=== PATIENT | female | born 1995 | race Caucasian/White ===

== ENCOUNTER 2018-05-23 10:44 | Day surgery (SDC) | payer MEDICAID ==
[2018-05-20 11:46] LABS: BASOPHILS % (AUTO) 0.5 % (0-1); EOSINOPHILS # (AUTO) 0.2 X10'3 (0-0.9); LYMPHOCYTES # (AUTO) 1.8 X10'3 (1.1-4.8); LYMPHOCYTES % (AUTO) 23.7 % (21-51); MEAN CORPUSCULAR HEMOGLOBIN 29.5 PG (27.0-31.0); MEAN CORPUSCULAR HGB CONC 33.9 % (33.0-36.5); MEAN PLATELET VOLUME 9.7 FL (7.4-10.4); MONOCYTES # (AUTO) 0.5 X10'3 (0-0.9); MONOCYTES % (AUTO) 6.6 % (2-12); NEUTROPHILS # (AUTO) 4.9 X10'3 (1.8-7.7); NEUTROPHILS % (AUTO) 66.2 % (42-75); PRE OP HEMOGLOBIN 12.9 g/dL (12.0-16.0); PRE OP PLATELET COUNT 218 X10'3 (140-440); RED BLOOD COUNT 4.37 X10'6 (4.20-5.60); RED CELL DISTRIBUTION WIDTH 13.1 % (11.5-14.5)
[2018-05-20 12:00] LABS: ALBUMIN/GLOBULIN RATIO 1.3 (1.1-1.5); ALKALINE PHOSPHATASE 91 IU/L (46-116); BLOOD UREA NITROGEN 12 MG/DL (7-18); BUN/CREATININE RATIO 15.8 (6.6-38.0); CALCIUM 9.3 MG/DL (8.5-10.1); CHLORIDE 104 MMOL/L (99-107); CREATININE 0.76 MG/DL (0.40-0.90); PRE OP ALT 36 U/L (30-65); PRE OP ANION GAP 9 (8-16); PRE OP AST 18 U/L (10-37); PRE OP BILIRUB, TOTAL 0.5 MG/DL (0.0-1.0); PRE OP GLUCOSE 97 MG/DL (70-104); PRE OP SODIUM 140 MMOL/L (135-145); TOTAL PROTEIN 7.1 G/DL (6.4-8.2); eGFR > 90 ML/MIN
[2018-05-20 12:01] LABS: HCG SERUM QL NEGATIVE
[2018-05-23] VITALS (8 sets, daily range): BP systolic 110–117; BP diastolic 56–75
[~2018-05-23] VITALS: Ht 154.9 cm; Wt 68.0 kg
[~2018-05-23 10:44] MED LIST: Cefazolin 2GM/50ML dext iso,osmotic IVPB IV ONE; IBUP-1984 PO; MULT-1085 PO; famotidine 20mg tablet PO ONE; ringers solution, lacted 1,000 ML IV SCH
[2018-05-23] MEDS ORDERED: LIDOcaine 1% (10mg/ml) 2ml vial ONE (11:46)
[2018-05-23] MEDS ORDERED: BUPIVAcaine/PF 2.5mg/ml (0.25%) 10ml vial ONE (12:03)
[2018-05-23] MEDS ORDERED: ceFAZolin 1000mg inj ONE (12:03)
[2018-05-23] MEDS ORDERED: diazepam 5mg tablet PO ONE (12:15)
[2018-05-23] MEDS ORDERED: LIDOcaine/PRILOcaine 5gm cream TP ONE (12:25)
[2018-05-23] MEDS ORDERED: midazolam 2 mg/2 ml injection ONE (13:34)
[2018-05-23] MEDS ORDERED: fentaNYL /PF 50mcg/ml 5ml ampule ONE (13:35)
[2018-05-23] MEDS ORDERED: propofol inj 20 ML IV ONE (13:35)
[2018-05-23] MEDS ORDERED: rocuronium 10mg/ml inj IV ONE (13:35)
[2018-05-23 13:39] LABS: CLARITY,URINE SLIGHTLY CLOUDY (Clear); COLOR,URINE YELLOW (Yellow); GLUCOSE, URINE NEGATIVE (Neg); KETONES,URINE NEGATIVE (Neg); LEUKOCYTE ESTERASE ,URINE NEGATIVE (Neg); NITRITES, URINE NEGATIVE (Neg); OCCULT BLOOD,URINE NEGATIVE (Neg); PROTEIN,URINE NEGATIVE (Neg); UROBILINOGEN,URINE 0.2 E.U/dL (0.2-1.0)
[2018-05-23] MEDS ORDERED: sevoflurane 250ml liquid IH ONE (13:48)
[2018-05-23] MEDS ORDERED: ringers solution, lacted 1,000 ML IV SCH (14:08)
[2018-05-23] MEDS ORDERED: meperidine/PF 25mg/ml syringe IV PRN ×3 (14:10)
[2018-05-23] MEDS ORDERED: ondansetron/PF 4mg/2ml inj IV PRN (14:10)
[2018-05-23] MEDS ORDERED: morphine 4 MG/ML inj SYRINge IV PRN ×2 (14:10)
[2018-05-23] MEDS ORDERED: proCHLORperazine 10 MG/2 ml inj IV PRN (14:10)
[2018-05-23 14:12] LABS: UA COLLECTION TYPE CLN CATCH MIDSTREAM
[2018-05-23 14:14] LABS: BACTERIA,URINE NONE SEEN /HPF (Neg); RBC,URINE NONE SEEN /HPF (0-2); SQUAMOUS EPITHELIAL CELL,UR MANY /LPF (FEW); WBC,URINE 0-4 /HPF (0-4)
[2018-05-23] MEDS ORDERED: ondansetron/PF 4mg/2ml inj ONE (14:35)
[2018-05-23] MEDS ORDERED: dexamethasone sod phosphate 4mg/ml inj. ONE (14:35)
[2018-05-23] MEDS ORDERED: neostigmine methylsulfate 1 MG/ML 10ml vial ONE (14:36)
[2018-05-23] MEDS ORDERED: glycopyrrolate 0.2mg/ml inj ONE (14:36)
[2018-05-23] MEDS ORDERED: ketorolac trometh. 30mg/ml inj. IV ONE (15:15)
== END 2018-05-23 16:14 | disposition home or self-care (01) ==
LOC: PAS 10:44
PROVIDERS: ATTEND Surgery
DX: K81.1 Chronic cholecystitis (principal); K82.8 Other specified diseases of gallbladder; D36.0 Benign neoplasm of lymph nodes; F17.210 Nicotine dependence, cigarettes, uncomplicated; F12.90 Cannabis use, unspecified, uncomplicated; F41.8 Other specified anxiety disorders; Z91.018 Allergy to other foods; Z79.1 Long term (current) use of non-steroidal anti-inflammatories (NSAID); Z88.8 Allergy status to other drugs, medicaments and biological substances; Z98.890 Other specified postprocedural states; Z79.899 Other long term (current) drug therapy
CPT/HCPCS: 36415; 47562; 80053; 81001; 84703; 85025; A6258; J0690; J0780; J1100; J1885; J2175; J2250; J2405; J2704; J2710; J3010; J3490; J7120; A7000

== ENCOUNTER 2018-06-03 18:02 | Emergency (ER) | payer MEDICAID ==
[~2018-06-03] VITALS: Ht 154.9 cm; Wt 69.0 kg
[~2018-06-03 18:02] MED LIST changes: -Cefazolin 2GM/50ML dext iso,osmotic IVPB IV ONE; -famotidine 20mg tablet PO ONE; -ringers solution, lacted 1,000 ML IV SCH
[2018-06-03 18:47] LABS: CLARITY,URINE CLOUDY (Clear); COLOR,URINE YELLOW (Yellow); GLUCOSE, URINE NEGATIVE (Neg); KETONES,URINE NEGATIVE (Neg); LEUKOCYTE ESTERASE ,URINE MODERATE (Neg); NITRITES, URINE NEGATIVE (Neg); OCCULT BLOOD,URINE NEGATIVE (Neg); PROTEIN,URINE NEGATIVE (Neg)
[2018-06-03 18:48] LABS: URINE HCG NEGATIVE (NEG)
[2018-06-03 18:49] LABS: UA COLLECTION TYPE CLN CATCH MIDSTREAM
[2018-06-03 18:59] LABS: AMORPHOUS PHOSPHATES 4+; BACTERIA,URINE 1+ /HPF (Neg); MUCUS STRANDS MANY /LPF (Neg); RBC,URINE NONE SEEN /HPF (0-2); SQUAMOUS EPITHELIAL CELL,UR MANY /LPF (FEW)
[2018-06-03 19:16] LABS: BASOPHILS % (AUTO) 0.1 % (0-1); EOSINOPHILS # (AUTO) 0.2 X10'3 (0-0.9); EOSINOPHILS % (AUTO) 1.5 % (0-6); HEMATOCRIT 38.9 % (35.0-45.0); HEMOGLOBIN 13.2 g/dl (12.0-16.0); LYMPHOCYTES % (AUTO) 15.1 % (21-51); MEAN CORPUSCULAR HEMOGLOBIN 29.7 PG (27.0-31.0); MEAN CORPUSCULAR VOLUME 87.4 FL (78-98); MEAN PLATELET VOLUME 9.8 FL (7.4-10.4); MONOCYTES # (AUTO) 0.6 X10'3 (0-0.9); MONOCYTES % (AUTO) 4.9 % (2-12); NEUTROPHILS # (AUTO) 10.2 X10'3 (1.8-7.7); NEUTROPHILS % (AUTO) 78.4 % (42-75); PLATELET COUNT 243 X10'3 (140-440); RED BLOOD COUNT 4.45 X10'6 (4.20-5.60); RED CELL DISTRIBUTION WIDTH 13.1 % (11.5-14.5); WHITE BLOOD COUNT 12.9 X10'3 (4.5-11.0)
[2018-06-03 19:31] LABS: ALANINE AMINOTRANSFERASE 128 U/L (12-78); ALBUMIN/GLOBULIN RATIO 1.1 (1.1-1.5); ALKALINE PHOSPHATASE 130 IU/L (46-116); ANION GAP 12 (8-16); ASPARTATE AMINO TRANSFERASE 24 U/L (10-37); BILIRUBIN,TOTAL 0.3 MG/DL (0.1-1.0); BLOOD UREA NITROGEN 10 MG/DL (7-18); BUN/CREATININE RATIO 13.9 (6.6-38.0); CALCIUM 9.5 MG/DL (8.5-10.1); CHLORIDE 103 MMOL/L (99-107); CREATININE 0.72 MG/DL (0.40-0.90); GLUCOSE 105 MG/DL (70-104); LIPASE 134 U/L (73-393); POTASSIUM 3.6 MMOL/L (3.5-5.1); SODIUM 141 MMOL/L (135-145); TOTAL CARBON DIOXIDE 26.5 MMOL/L (24-32); TOTAL PROTEIN 7.5 G/DL (6.4-8.2); eGFR > 90 ML/MIN
[2018-06-03] MEDS ORDERED: iohexol 300mg/ml 100ml inj. ONE (19:54)
[2018-06-03 20:07] LABS: MAGNESIUM 2.1 MG/DL (1.5-2.4)
[2018-06-03] MEDS ORDERED: morphine 4 MG/ML inj SYRINge IV ONE (20:35)
[2018-06-03] MEDS ORDERED: ondansetron/PF 4mg/2ml inj IV ONE (20:35)
[2018-06-03] MEDS ORDERED: ondansetron 4mg rapidly disintigrating tab PO ONE (21:55)
[2018-06-03] MEDS ORDERED: HYDROcodone/acetaminophen 10/325mg tab PO ONE (21:55)
[2018-06-03 22:03] VITALS: BP 112/60
== END 2018-06-03 22:04 | disposition home or self-care (01) ==
LOC: ER 18:03
DX: N83.201 Unspecified ovarian cyst, right side (principal); F12.90 Cannabis use, unspecified, uncomplicated; Z88.8 Allergy status to other drugs, medicaments and biological substances; Z91.018 Allergy to other foods
CPT/HCPCS: 36415; 74177; 80053; 81001; 81025; 83605; 83690; 83735; 84145; 85025; 85610; 87040; 87070; 87077; 87186; 96374; 96375; 99285; J2270; J2405; J7030; Q9967

== ENCOUNTER 2018-08-29 13:56 | Emergency (ER) | payer MEDICAID ==
[~2018-08-29] VITALS: Ht 154.9 cm; Wt 63.6 kg
[2018-08-29 14:42] LABS: URINE HCG NEGATIVE (NEG)
[2018-08-29 14:50] LABS: COLOR,URINE YELLOW (Yellow); GLUCOSE, URINE NEGATIVE (Neg); KETONES,URINE NEGATIVE (Neg); LEUKOCYTE ESTERASE ,URINE NEGATIVE (Neg); NITRITES, URINE NEGATIVE (Neg); OCCULT BLOOD,URINE NEGATIVE (Neg); PROTEIN,URINE NEGATIVE (Neg); UROBILINOGEN,URINE 0.2 E.U/dL (0.2-1.0)
[2018-08-29 14:53] LABS: CLARITY,URINE CLEAR (Clear); UA COLLECTION TYPE CLN CATCH MIDSTREAM
[2018-08-29 15:45] LABS: BASOPHILS % (AUTO) 0.5 % (0-1); EOSINOPHILS # (AUTO) 0.2 X10'3 (0-0.9); EOSINOPHILS % (AUTO) 1.9 % (0-6); HEMATOCRIT 39.3 % (35.0-45.0); HEMOGLOBIN 13.1 g/dl (12.0-16.0); LYMPHOCYTES # (AUTO) 1.6 X10'3 (1.1-4.8); LYMPHOCYTES % (AUTO) 17.5 % (21-51); MEAN CORPUSCULAR HGB CONC 33.3 % (33.0-36.5); MEAN CORPUSCULAR VOLUME 87.2 FL (78-98); MEAN PLATELET VOLUME 9.3 FL (7.4-10.4); MONOCYTES # (AUTO) 0.6 X10'3 (0-0.9); MONOCYTES % (AUTO) 6.9 % (2-12); NEUTROPHILS # (AUTO) 6.8 X10'3 (1.8-7.7); NEUTROPHILS % (AUTO) 73.2 % (42-75); PLATELET COUNT 240 X10'3 (140-440); RED BLOOD COUNT 4.51 X10'6 (4.20-5.60); RED CELL DISTRIBUTION WIDTH 13.7 % (11.5-14.5); WHITE BLOOD COUNT 9.3 X10'3 (4.5-11.0)
[2018-08-29 15:58] LABS: ALANINE AMINOTRANSFERASE 21 U/L (12-78); ALBUMIN 4.1 G/DL (3.4-5.0); ALBUMIN/GLOBULIN RATIO 1.5 (1.1-1.5); ALKALINE PHOSPHATASE 99 IU/L (46-116); ANION GAP 7 (8-16); ASPARTATE AMINO TRANSFERASE 13 U/L (10-37); BILIRUBIN,TOTAL 0.4 MG/DL (0.1-1.0); BLOOD UREA NITROGEN 11 MG/DL (7-18); BUN/CREATININE RATIO 14.9 (6.6-38.0); CALCIUM 9.1 MG/DL (8.5-10.1); CHLORIDE 104 MMOL/L (99-107); CREATININE 0.74 MG/DL (0.40-0.90); GLUCOSE 75 MG/DL (70-104); LIPASE 96 U/L (73-393); POTASSIUM 3.6 MMOL/L (3.5-5.1); SODIUM 140 MMOL/L (135-145); TOTAL CARBON DIOXIDE 29.5 MMOL/L (24-32); TOTAL PROTEIN 6.9 G/DL (6.4-8.2); eGFR > 90 ML/MIN
[2018-08-29] MEDS ORDERED: famotidine 20mg tablet PO ONE (16:00)
[2018-08-29] MEDS ORDERED: LIDOcaine Viscous 15ml cup PO ONE (16:00)
[2018-08-29] MEDS ORDERED: pantoprazole 40mg Tablet.DR PO ONE (16:00)
[2018-08-29] MEDS ORDERED: mag hydrox/Alum hydrox/simeth 30ml oral suspension PO ONE (16:00)
[2018-08-29 16:04] LABS: INR 1.1 INR; PROTHROMBIN TIME 10.9 SECONDS (9.0-12.0)
[2018-08-29] MEDS ORDERED: PANT-47 PO (17:22)
[2018-08-29] MEDS ORDERED: BISA-155 PO (17:22)
[2018-08-29] MEDS ORDERED: ONDA8TAB9 PO (17:22)
[2018-08-29 17:54] VITALS: BP 126/86
== END 2018-08-29 17:57 | disposition home or self-care (01) ==
LOC: ER 13:56
DX: R10.13 Epigastric pain (principal); R11.2 Nausea with vomiting, unspecified; F12.90 Cannabis use, unspecified, uncomplicated; Z79.899 Other long term (current) drug therapy; Z91.018 Allergy to other foods; Z88.8 Allergy status to other drugs, medicaments and biological substances; Z90.49 Acquired absence of other specified parts of digestive tract
CPT/HCPCS: 36415; 80053; 81003; 81025; 83690; 85025; 85610; 99284

== ENCOUNTER 2019-11-13 22:24 | Emergency (ER) | payer MEDICAID ==
[~2019-11-13] VITALS: Ht 154.9 cm; Wt 68.4 kg
[~2019-11-13 22:24] MED LIST changes: +BISA-155 PO; +ONDA8TAB9 PO; +PANT-47 PO
[2019-11-13 23:29] LABS: CLARITY,URINE CLEAR (Clear); COLOR,URINE YELLOW (Yellow); GLUCOSE, URINE NEGATIVE (Neg); KETONES,URINE NEGATIVE (Neg); LEUKOCYTE ESTERASE ,URINE SMALL (Neg); NITRITES, URINE NEGATIVE (Neg); OCCULT BLOOD,URINE NEGATIVE (Neg); PROTEIN,URINE NEGATIVE (Neg); UROBILINOGEN,URINE 0.2 E.U/dL (0.2-1.0)
[2019-11-13 23:35] LABS: URINE HCG NEGATIVE (NEG)
[2019-11-13 23:37] LABS: BASOPHILS # (AUTO) 0.1 X10'3 (0-0.2); BASOPHILS % (AUTO) 0.9 % (0-1); EOSINOPHILS # (AUTO) 0.4 X10'3 (0-0.9); EOSINOPHILS % (AUTO) 3.5 % (0-6); HEMATOCRIT 38.9 % (35.0-45.0); HEMOGLOBIN 13.4 g/dl (12.0-16.0); LYMPHOCYTES # (AUTO) 2.6 X10'3 (1.1-4.8); LYMPHOCYTES % (AUTO) 22.4 % (21-51); MEAN CORPUSCULAR HEMOGLOBIN 29.8 PG (27.0-31.0); MEAN CORPUSCULAR HGB CONC 34.4 g/dL (33.0-36.5); MEAN CORPUSCULAR VOLUME 86.5 FL (78-98); MEAN PLATELET VOLUME 9.6 FL (7.4-10.4); MONOCYTES # (AUTO) 0.7 X10'3 (0-0.9); MONOCYTES % (AUTO) 6.2 % (2-12); NEUTROPHILS # (AUTO) 7.7 X10'3 (1.8-7.7); PLATELET COUNT 222 X10'3 (140-440); RED CELL DISTRIBUTION WIDTH 12.9 % (11.5-14.5); WHITE BLOOD COUNT 11.5 X10'3 (4.5-11.0)
[2019-11-13 23:48] LABS: UA COLLECTION TYPE CLN CATCH MIDSTREAM
[2019-11-13 23:49] LABS: BACTERIA,URINE FEW /HPF (Neg); RBC,URINE NONE SEEN /HPF (0-2); SQUAMOUS EPITHELIAL CELL,UR FEW /LPF (FEW); WBC,URINE 0-4 /HPF (0-4)
[2019-11-13 23:50] LABS: ALANINE AMINOTRANSFERASE 41 U/L (12-78); ALBUMIN 4.3 G/DL (3.4-5.0); ALBUMIN/GLOBULIN RATIO 1.5 (1.1-1.5); ALKALINE PHOSPHATASE 85 IU/L (46-116); ANION GAP 12 (8-16); ASPARTATE AMINO TRANSFERASE 22 U/L (10-37); BILIRUBIN,TOTAL 0.3 MG/DL (0.1-1.0); BLOOD UREA NITROGEN 12 MG/DL (7-18); BUN/CREATININE RATIO 17.6 (6.6-38.0); CALCIUM 9.4 MG/DL (8.5-10.1); CHLORIDE 105 MMOL/L (99-107); CREATININE 0.68 MG/DL (0.40-0.90); GLUCOSE 98 MG/DL (70-104); LIPASE 134 U/L (73-393); POTASSIUM 4.2 MMOL/L (3.5-5.1); SODIUM 143 MMOL/L (135-145); TOTAL PROTEIN 7.2 G/DL (6.4-8.2); eGFR > 90 ML/MIN
[2019-11-13] MEDS ORDERED: ringers solution, lacted 1,000 ML IV ONE (23:50)
[2019-11-13] MEDS ORDERED: ondansetron/PF 4mg/2ml inj IV ONE (23:50)
[2019-11-13] MEDS ORDERED: morphine 4 MG/ML inj SYRINge IV ONE (23:50)
[2019-11-14 00:19] LABS: PARTIAL THROMBOPLASTIN TIME 27 SECONDS (22-32)
[2019-11-14 00:53] VITALS: BP 113/44
== END 2019-11-14 00:55 | disposition home or self-care (01) ==
LOC: ER 22:25
DX: R10.31 Right lower quadrant pain (principal); R10.33 Periumbilical pain; R11.2 Nausea with vomiting, unspecified; R19.7 Diarrhea, unspecified; F12.90 Cannabis use, unspecified, uncomplicated; F41.9 Anxiety disorder, unspecified; Z90.49 Acquired absence of other specified parts of digestive tract; Z91.018 Allergy to other foods; Z88.8 Allergy status to other drugs, medicaments and biological substances; Z79.899 Other long term (current) drug therapy
CPT/HCPCS: 36415; 74176; 80053; 81001; 81025; 83690; 84145; 85025; 85610; 85730; 87088; 96361; 96374; 96375; 99284; J2270; J2405; J7120

== ENCOUNTER 2021-04-14 11:22 | Emergency (ER) | payer MEDICAID ==
[~2021-04-14] VITALS: Ht 154.9 cm; Wt 71.5 kg
[2021-04-14] MEDS ORDERED: VALA100031 PO (13:27)
[2021-04-14 13:34] VITALS: BP 110/77
== END 2021-04-14 13:35 | disposition home or self-care (01) ==
LOC: ER 11:23
DX: R07.81 Pleurodynia (principal); R20.8 Other disturbances of skin sensation; F41.9 Anxiety disorder, unspecified; F12.90 Cannabis use, unspecified, uncomplicated; Z90.49 Acquired absence of other specified parts of digestive tract; Z91.018 Allergy to other foods; Z79.899 Other long term (current) drug therapy; Z79.2 Long term (current) use of antibiotics
CPT/HCPCS: 71046; 99283

== ENCOUNTER 2022-04-14 10:08 | Emergency (ER) | payer MEDICAID ==
[~2022-04-14] VITALS: Ht 154.9 cm; Wt 68.2 kg
[~2022-04-14 10:08] MED LIST changes: +VALA100031 PO
[2022-04-14 10:53] LABS: BASOPHILS # (AUTO) 0.1 X10'3 (0-0.2); BASOPHILS % (AUTO) 0.7 % (0-1); EOSINOPHILS # (AUTO) 0.2 X10'3 (0-0.9); EOSINOPHILS % (AUTO) 2.5 % (0-6); HEMATOCRIT 38.4 % (35.0-45.0); HEMOGLOBIN 13.1 g/dl (12.0-16.0); LYMPHOCYTES # (AUTO) 1.8 X10'3 (1.1-4.8); LYMPHOCYTES % (AUTO) 20.7 % (21-51); MEAN CORPUSCULAR HEMOGLOBIN 29.2 PG (27.0-31.0); MEAN CORPUSCULAR HGB CONC 34.1 g/dL (33.0-36.5); MEAN CORPUSCULAR VOLUME 85.6 FL (78-98); MEAN PLATELET VOLUME 8.4 FL (7.4-10.4); MONOCYTES # (AUTO) 0.5 X10'3 (0-0.9); MONOCYTES % (AUTO) 6.1 % (2-12); PLATELET COUNT 278 X10'3 (140-440); RED BLOOD COUNT 4.48 X10'6 (4.20-5.60); RED CELL DISTRIBUTION WIDTH 13.7 % (11.5-14.5); WHITE BLOOD COUNT 8.6 X10'3 (4.5-11.0)
[2022-04-14 10:57] LABS: URINE HCG NEGATIVE (NEG)
[2022-04-14 11:08] LABS: CLARITY,URINE CLOUDY (Clear); COLOR,URINE YELLOW (Yellow); GLUCOSE, URINE NEGATIVE (Neg); KETONES,URINE NEGATIVE (Neg); LEUKOCYTE ESTERASE ,URINE NEGATIVE (Neg); NITRITES, URINE NEGATIVE (Neg); OCCULT BLOOD,URINE LARGE (Neg); PH,URINE 5.5 (4.8-8.0); PROTEIN,URINE NEGATIVE (Neg); UROBILINOGEN,URINE 0.2 E.U/dL (0.2-1.0)
[2022-04-14 11:08] LABS: ALANINE AMINOTRANSFERASE 62 U/L (12-78); ALBUMIN/GLOBULIN RATIO 1.1 (1.1-1.5); ALKALINE PHOSPHATASE 93 IU/L (46-116); ANION GAP 10 (8-16); ASPARTATE AMINO TRANSFERASE 26 U/L (10-37); BILIRUBIN,TOTAL 0.3 MG/DL (0.1-1.0); BLOOD UREA NITROGEN 7 MG/DL (7-18); BUN/CREATININE RATIO 10.8 (6.6-38.0); CALCIUM 8.4 MG/DL (8.5-10.1); CHLORIDE 108 MMOL/L (99-107); CREATININE 0.65 MG/DL (0.40-0.90); GLUCOSE 95 MG/DL (70-104); SODIUM 142 MMOL/L (135-145); TOTAL CARBON DIOXIDE 24.4 MMOL/L (24-32); TOTAL PROTEIN 7.5 G/DL (6.4-8.2); eGFR > 90 ML/MIN
[2022-04-14 11:13] LABS: UA COLLECTION TYPE VOIDED
[2022-04-14 11:15] LABS: MUCUS STRANDS MODERATE /LPF (Neg); RBC,URINE TNTC /HPF (0-2); SQUAMOUS EPITHELIAL CELL,UR MODERATE /LPF (FEW)
[2022-04-14 11:16] LABS: BACTERIA,URINE FEW /HPF (Neg); WBC,URINE 0-4 /HPF (0-4)
[2022-04-14] MEDS ORDERED: ketorolac trometh inj. 60 MG/2 ML VIAL IM ONE (15:50)
[2022-04-14 16:47] VITALS: BP 123/80
== END 2022-04-14 16:49 | disposition home or self-care (01) ==
LOC: ER 10:09
DX: N93.9 Abnormal uterine and vaginal bleeding, unspecified (principal); F41.9 Anxiety disorder, unspecified; F12.90 Cannabis use, unspecified, uncomplicated; Z91.018 Allergy to other foods; Z88.8 Allergy status to other drugs, medicaments and biological substances; Z90.49 Acquired absence of other specified parts of digestive tract
CPT/HCPCS: 36415; 76830; 76856; 80053; 81001; 81025; 85025; 87210; 93976; 96372; 99284; J1885

== ENCOUNTER 2022-06-10 05:57 | Emergency (ER) | payer MEDICAID ==
[~2022-06-10] VITALS: Ht 154.9 cm; Wt 68.2 kg
[2022-06-10 06:42] LABS: URINE HCG NEGATIVE (NEG)
[2022-06-10 06:43] LABS: CLARITY,URINE CLOUDY (Clear); COLOR,URINE YELLOW (Yellow); GLUCOSE, URINE NEGATIVE (Neg); KETONES,URINE NEGATIVE (Neg); LEUKOCYTE ESTERASE ,URINE NEGATIVE (Neg); NITRITES, URINE NEGATIVE (Neg); OCCULT BLOOD,URINE TRACE-INTACT (Neg); PH,URINE 5.5 (4.8-8.0); PROTEIN,URINE TRACE mg/dl (Neg); UROBILINOGEN,URINE 0.2 E.U/dL (0.2-1.0)
[2022-06-10 06:49] LABS: UA COLLECTION TYPE CLN CATCH MIDSTREAM
[2022-06-10 06:57] LABS: BACTERIA,URINE 2+ /HPF (Neg); COARSE GRANULAR CAST 0-3 /LPF (NEGATIVE); MUCUS STRANDS MANY /LPF (Neg); RBC,URINE 0-2 /HPF (0-2); SQUAMOUS EPITHELIAL CELL,UR MANY /LPF (FEW); TRANSITIONAL EPI CELLS,URINE FEW /HPF; WBC,URINE 0-4 /HPF (0-4)
[2022-06-10] MEDS ORDERED: ondansetron/PF 4mg/2ml inj IM ONE (08:30)
[2022-06-10] MEDS ORDERED: pantoprazole 40MG/NS 100ML BAG 100 ML IV STA (08:30)
[2022-06-10] MEDS ORDERED: iohexol 300mg/ml 100ml inj. ONE (09:00)
[2022-06-10 09:01] LABS: BASOPHILS # (AUTO) 0.1 X10'3 (0-0.2); BASOPHILS % (AUTO) 0.8 % (0-1); EOSINOPHILS # (AUTO) 0.1 X10'3 (0-0.9); EOSINOPHILS % (AUTO) 1.9 % (0-6); HEMATOCRIT 38.7 % (35.0-45.0); HEMOGLOBIN 12.9 g/dl (12.0-16.0); LYMPHOCYTES # (AUTO) 1.7 X10'3 (1.1-4.8); LYMPHOCYTES % (AUTO) 25.7 % (21-51); MEAN CORPUSCULAR HEMOGLOBIN 28.5 PG (27.0-31.0); MEAN CORPUSCULAR HGB CONC 33.4 g/dL (33.0-36.5); MEAN CORPUSCULAR VOLUME 85.4 FL (78-98); MEAN PLATELET VOLUME 9.4 FL (7.4-10.4); MONOCYTES # (AUTO) 0.4 X10'3 (0-0.9); MONOCYTES % (AUTO) 6.5 % (2-12); NEUTROPHILS # (AUTO) 4.3 X10'3 (1.8-7.7); NEUTROPHILS % (AUTO) 65.1 % (42-75); PLATELET COUNT 314 X10'3 (140-440); RED BLOOD COUNT 4.53 X10'6 (4.20-5.60); RED CELL DISTRIBUTION WIDTH 13.8 % (11.5-14.5); WHITE BLOOD COUNT 6.5 X10'3 (4.5-11.0)
[2022-06-10 09:14] LABS: ALANINE AMINOTRANSFERASE 61 U/L (12-78); ALBUMIN 4.2 G/DL (3.4-5.0); ALBUMIN/GLOBULIN RATIO 1.2 (1.1-1.5); ALKALINE PHOSPHATASE 97 IU/L (46-116); ANION GAP 11 (8-16); ASPARTATE AMINO TRANSFERASE 26 U/L (10-37); BILIRUBIN,TOTAL 0.3 MG/DL (0.1-1.0); BLOOD UREA NITROGEN 9 MG/DL (7-18); BUN/CREATININE RATIO 12.9 (6.6-38.0); CALCIUM 9.5 MG/DL (8.5-10.1); CHLORIDE 102 MMOL/L (99-107); GLUCOSE 103 MG/DL (70-104); LIPASE 57 U/L (73-393); POTASSIUM 4.1 MMOL/L (3.5-5.1); SODIUM 141 MMOL/L (135-145); TOTAL PROTEIN 7.7 G/DL (6.4-8.2); eGFR > 90 ML/MIN
[2022-06-10] MEDS ORDERED: OMEP40CA21 PO (12:14)
[2022-06-10 13:33] VITALS: BP 108/68
== END 2022-06-10 13:46 | disposition home or self-care (01) ==
LOC: ER 05:57
DX: K29.71 Gastritis, unspecified, with bleeding (principal); R11.10 Vomiting, unspecified; F41.9 Anxiety disorder, unspecified; F12.90 Cannabis use, unspecified, uncomplicated; Z90.49 Acquired absence of other specified parts of digestive tract; Z88.8 Allergy status to other drugs, medicaments and biological substances; Z91.018 Allergy to other foods; Z79.2 Long term (current) use of antibiotics; Z79.899 Other long term (current) drug therapy
CPT/HCPCS: 36415; 74177; 80053; 81001; 81025; 83690; 85025; 86885; 86900; 86901; 96365; 96366; 96372; 99285; C9113; J2405; J7050; Q9967; 99284